=== PATIENT | female | born 1975 | race American Indian/Alaskan Native ===

== ENCOUNTER 2017-02-20 19:06 | Emergency (ER) | payer MEDICAID ==
[~2017-02-20] VITALS: Ht 154.9 cm; Wt 67.6 kg
[~2017-02-20 19:06] MED LIST: SULF1TAB35 PO
--- OUTSIDE RECORDS SUMMARY | 2017-02-20 19:11 | XMS REPORT | Continuity of Care Document ---
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 09/23/2013 CAROLINA CAMPO DO V72.83 OTHER SPECIFIED PRE-OPERATIVE EXAMINATION 09/23/2013 CAROLINA CAMPO DO 070.54 CHRONIC HEPATITIS C WITHOUT HEPATIC COMA 09/23/2013 CAROLINA CAMPO DO 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 09/23/2013 CAROLINA CAMPO DO V72.83 OTHER SPECIFIED PRE-OPERATIVE EXAMINATION 04/14/2014 CAROLINA CAMPO DO 054.12 HERPETIC ULCERATION OF VULVA 04/14/2014 CAROLINA CAMPO DO 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 Visit Date/Time Discharge Status Pt. Type Provider Facility Loc./Unit Complaint [id number] 04/14/2014 09:47:00 04/14/2014 23: 59:59 CLS Outpatient CAROLINA CAMPO DO [id number] 09/23/2013 14:08:00 09/23/2013 23: 59:59 CLS Outpatient CAROLINA CAMPO DO
--- OUTSIDE RECORDS SUMMARY | 2017-02-20 19:11 | XMS REPORT ---
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
--- NOTE | 2017-02-20 19:30 | ED Upper Extremity ---
General Chief Complaint: General Problems/Pain Stated Complaint: LEFT SHOULDER PAIN Source: patient History of Present Illness Time seen by provider: 19:19 Initial Comments PT ARRIVES VIA POV C/O LEFT SHOULDER PAIN FOR OVER A WEEK--PAIN IS OVER LEFT TRAPEZIUS AREA NO INJURY STATES SHE SWITCHED BEDS A WEEK OR TWO AGO AND THINKS THAT IS WHY HER SHOULDER IS HURTING NO PARESTHESIAS OR MOTOR DEFICITS NO NECK OR BACK PAIN NO CHEST PAIN PAIN WORSE WITH ANY MOVEMENTS OF LEFT SHOULDER STATES 3-4 YEARS AGO SHE FELL AND INJURED THIS SHOULDER, AND STATES "MY WHOLE ARM WAS NUMB FOR A YEAR AND THEN IT GRADUALLY CAME BACK" NO SURGERY, THERAPY, ETC. PT STATES NO RELIEF WITH ICY HOT, XANAX ( NOT HER OWN--RAN OUT OF HER OWN) , OCYCODONE ( NOT HER OWN) , THC PT IS RIGHT HANDED SYMPTOMS NO DIFFERENT TODAY HAS NOT SOUGHT CARE UNTIL TODAY PCP: LIYA BAUER Allergies and Home Medications Allergies Coded Allergies: Codeine (Verified Allergy, Unknown, 03/11/06) Home Medications Cyclobenzaprine HCl 10 Mg Tablet, 10 MG PO Q8H, #15 Prescribed by: EVELIN MENDIETA on 02/20/172004 Methylprednisolone 4 Mg Tab.ds.pk, 4 MG PO UD, #1 Prescribed by: EVELIN MENDIETA on 02/20/172004 Sulfamethoxazole/Trimethoprim 1 Each Tablet, 1 EACH PO BID, #14 Prescribed by: FILIBERTO NAGEL on 12/12/152058 Constitutional: no symptoms reported Respiratory: no symptoms reported Cardiovascular: no symptoms reported Gastrointestinal: no symptoms reported Genitourinary: no symptoms reported : No LMP: Feb 20, 2017 Control/STD Prophylaxis: None Musculoskeletal: see HPI Skin: no symptoms reported Psychiatric/Neurological: No Symptoms Reported Past Aygakbp-Wpeegf-Mpreht Hx Patient Social History Recreational Drug Use: Yes (METH, THC) Smoking Status: Current Everyday Smoker Type Used: Cigarettes Recent Foreign Travel: No Contact w/Someone Who Travel: No Recent Hopitalizations: No Gastrointestinal Gastrointestinal Disorders: Hepatitis Cancer Cancer: Rectal Family Medical History Significant Family History: No Pertinent Family Hx Physical Exam Vital Signs Vital Sign - Last 12Hours 02/20/17 19:11 Temp 97.0 Pulse 91 Resp 20 B/P (MAP) 126/92 Pulse Ox 98 O2 Delivery Room Air Capillary Refill : General Appearance: WD/WN, no apparent distress, other (REEKS OF CIGARETTES, CONSTANT MOVEMENTS OF MOUTH AND BODY, SPEECH VERY RAPID AND MUMBLING--APPEARS TO BE UNDER THE INFLUENCE OF SOME SUBSTANCE/S) HEENT: other (EDENTULOUS--UPPER DENTURES IN PLACE) Neck: non-tender, full range of motion, normal inspection Cardiovascular: normal peripheral pulses, regular rate, rhythm, no murmur Respiratory: chest non-tender, normal breath sounds, no respiratory distress, no accessory muscle use Gastrointestinal: non tender, soft Back: normal inspection, no CVA tenderness, no vertebral tenderness Shoulder: No asymmetry, bone tenderness (POSTERIOR LEFT SHOULDER), No deformity , No ecchymosis, limited ROM (HOLDS LEFT ARM STIFFLY BENT AT ELBOW AND TO HER SIDE), pain, soft tissue tenderness (PAIN/ TENDERNESS DIRECTLY OVER LEFT TRAPEZIUS MUSCLE. MARKEDLY EXAGGERATED PAIN RESPONSE. PALPATION REPRODUCES PAIN ), No swelling Elbow/Forearm: normal inspection, non-tender, no evidence of injury, normal ROM Wrist: Yes normal inspection, Yes non-tender, Yes no evidence of injury Hand: normal inspection, non-tender, no evidence of injury, normal ROM Neurologic/Tendon: normal sensation, normal motor functions, normal tendon functions Neurologic/Psychiatric: machine cloth trimmer II-XII nml as tested, no motor/sensory deficits, alert, oriented x 3 Skin: normal color, warm/dry Splinting and Joint Reduction : Arm Sling: [place] Progress/Results/Core Measures Results/Orders My Orders Orders - EVELIN MENDIETA DO Shoulder, Left, 3 Views (02/20/17 19:23) Sling (02/20/17 19:59) Vital Signs/I&O Vital Sign - Last 12Hours 02/20/17 19:11 Temp 97.0 Pulse 91 Resp 20 B/P (MAP) 126/92 Pulse Ox 98 O2 Delivery Room Air Diagnostic Imaging Comments XRAYS LEFT SHOULDER--NO ACUTE PROCESS, PENDING RADIOLOGIST REVIEW Reviewed: Reviewed by Me Departure Impression Impression: Primary Impression: Strain of left trapezius muscle Disposition: HOME, SELF-CARE Condition: Stable Departure-Patient Inst. Referrals: NO,LOCAL PHYSICIAN (PCP/Family) Primary Care Physician Patient Instructions: Muscle Strain (DC) Add. Discharge Instructions: MOIST HEAT TO AREA AT 20 MINUTE INTERVALS WEAR SLING NEEDED FOR COMFORT FOLLOW UP WITH [facility] IN 2-3 DAYS FOR FURTHER CARE All discharge instructions reviewed with patient and/or family. Voiced understanding. Scripts Cyclobenzaprine HCl (Cyclobenzaprine HCl) 10 Mg Tablet 10 MG PO Q8H, #15 TAB Prov: EVELIN MENDIETA DO 02/20/17 Methylprednisolone (Medrol) 4 Mg Tab.ds.pk 4 MG PO UD, #1 PKG Prov: EVELIN MENDIETA DO 02/20/17 EVELIN MENDIETA DO Feb 20, 2017 19:29
[2017-02-20] MEDS ORDERED: METH4TAB PO (20:05)
[2017-02-20] MEDS ORDERED: CYCL10TA9 PO (20:05)
[2017-02-20 20:11] VITALS: BP 126/92
--- NOTE | 2017-02-20 20:18 | Diagnostic Imaging Report ---
INDICATION: Left shoulder pain 3 views of the left shoulder show no fracture, dislocation or other acute abnormalities. IMPRESSION: Negative left shoulder Dictated by: Dictated on workstation # [id number]
== END 2017-02-20 20:11 | disposition home or self-care (01) ==
LOC: EDUNIT# 19:06 → ER 19:08
DX: S29.012A Strain of muscle and tendon of back wall of thorax, initial encounter (principal); F17.210 Nicotine dependence, cigarettes, uncomplicated; Z87.19 Personal history of other diseases of the digestive system; X50.0XXA Overexertion from strenuous movement or load, initial encounter
CPT/HCPCS: 73030; 99281

== ENCOUNTER 2018-02-13 09:18 | Emergency (ER) | payer SELFPAY ==
[~2018-02-13] VITALS: Ht 154.9 cm; Wt 59.0 kg
[~2018-02-13 09:18] MED LIST changes: +CYCL10TA9 PO; +METH4TAB PO
--- NOTE | 2018-02-13 12:33 | Diagnostic Imaging Report ---
INDICATION: Dyspnea with cough and congestion for one week. COMPARISON: None. DISCUSSION: Two views of the chest were obtained. The lungs are hyperinflated, consistent with underlying COPD. Underlying emphysematous changes are present, particularly within the left lung apex. There is likely focal consolidation noted within the right infrahilar region, best seen on the lateral view. No pleural fluid or pneumothorax. Normal heart size. No osseous abnormality. IMPRESSION: 1. Suspect left lower lobe pneumonia. Dictated by: Dictated on workstation # [id number]
[2018-02-13] MEDS ORDERED: cefTRIAXone 1 GM/10 ML for IV (ROCEPHIN) IM ONE (13:00)
[2018-02-13] MEDS ORDERED: LIDOCAINE 1% INJ 20 ML 20 ML VIAL INJ ONE (13:00)
[2018-02-13] MEDS ORDERED: AZITHROMYCIN 250 MG TAB (ZITHROMAX) PO ONE (13:00)
[2018-02-13] MEDS ORDERED: KETOROLAC 30 MG/ML VIAL IM ONE (13:00)
[2018-02-13] MEDS ORDERED: AZIT250T12 PO (13:10)
--- NOTE | 2018-02-13 13:11 | ED General ---
General Chief Complaint: Cough/Cold/Flu Symptoms Stated Complaint: CHEST CONGESTION COLD SYMPTOMS Nursing Triage Note: PT PRESENTS TO ED WITH COMPLAINTS OF COUGH/CONGESTION/SOA X 1 WEEK. REPORTS THEY JUST MOVED INTO THEIR HOUSE AND CANNOT AFFORD TO TURN ON THE HEAT CURRENTLY. REPORTS THEY HAVE TWO SPACE HEATERS THEY ARE USING. PT REPORTS GENERALIZED WEAKNESS AND BODY ACHES. PT REPORTS SHE LAST USED METH LAST NIGHT. Nursing Sepsis Screen: No Definite Risk Source of Information: Patient Exam Limitations: No Limitations History of Present Illness Date Seen by Provider: Feb 13, 2018 Time Seen by Provider: 11:35 Initial Comments This 42-year-old woman presents to the emergency room with complaints of left lateral chest wall pain. She has had a productive cough for about one week. The pain is worse with breathing and coughing. She admits to smoking methamphetamines a couple of days ago. She also smokes tobacco. She is afebrile. Allergies and Home Medications Allergies Coded Allergies: codeine (Verified Allergy, Unknown, 03/11/06) Home Medications Azithromycin 250 Mg Tablet, 250 MG PO DAILY Prescribed by: SYLVESTER CHANDRA on 02/13/18 1310 Cyclobenzaprine HCl 10 Mg Tablet, 10 MG PO Q8H Prescribed by: EVELIN MENDIETA on 02/20/172004 Methylprednisolone 4 Mg Tab.ds.pk, 4 MG PO UD Prescribed by: EVELIN MENDIETA on 02/20/172004 Sulfamethoxazole/Trimethoprim 1 Each Tablet, 1 EACH PO BID Prescribed by: FILIBERTO NAGEL on 12/12/152058 Patient Home Medication List Home Medication List Reviewed: Yes Review of Systems Review of Systems Constitutional: no symptoms reported EENTM: no symptoms reported Respiratory: see HPI Cardiovascular: no symptoms reported Gastrointestinal: no symptoms reported Genitourinary: no symptoms reported Musculoskeletal: no symptoms reported Skin: no symptoms reported Psychiatric/Neurological: No Symptoms Reported Hematologic/Lymphatic: No Symptoms Reported Immunological/Allergic: no symptoms reported Past Zjnfjdw-Pmcxus-Mawomp Hx Patient Social History Alcohol Use: Denies Use Recreational Drug Use: Yes Drug of Choice: MARIJUANA, METH Smoking Status: Current Everyday Smoker Type Used: Cigarettes Recent Foreign Travel: No Contact w/Someone Who Travel: No Recent Infectious Disease Expo: No Recent Hopitalizations: No Physical Abuse: No Sexual Abuse: No Mistreated: No Fear: No Seasonal Allergies Seasonal Allergies: No Past Medical History Surgeries: Yes (SX RELTATED TO VULVA/ANAL CA) Gallbladder Respiratory: No Cardiac: No Neurological: No Genitourinary: No Gastrointestinal: Yes (HEPATITIS C) Hepatitis Musculoskeletal: No Endocrine: No HEENT: No Cancer: Yes (VULVAR) Rectal Psychosocial: Yes Anxiety Integumentary: No Blood Disorders: No Family Medical History No Pertinent Family Hx Physical Exam Vital Signs Vital Signs - First Documented 02/13/18 10:29 Temp 98.7 Pulse 98 Resp 20 B/P (MAP) 94/67 (76) Pulse Ox 97 O2 Delivery Room Air Capillary Refill : Less Than 3 Seconds Height, Weight, BMI Height: 5'1.00" Weight: 130lbs. 0oz. 58.190676xo; BMI Method:Stated General Appearance: WD/WN, Mild Distress HEENT: PERRL/EOMI, Normal ENT Inspection, Pharynx Normal Respiratory: Lungs Clear, Normal Breath Sounds, No Accessory Muscle Use, No Respiratory Distress, Other (splinting respirations, cough noted) Cardiovascular: Regular Rate, Rhythm, No Edema, No Murmur Extremity: Normal Inspection, No Calf Tenderness, No Pedal Edema Neurologic/Psychiatric: Alert, Oriented x3, No Motor/Sensory Deficits, Normal Mood/Affect, consultant dietitian II-XII Norm as Tested Skin: Normal Color, Warm/Dry Progress/Results/Core Measures Suspected Sepsis Recent Fever Within 48 Hours: No Infection Criteria Present: Suspected New Infection New/Unexplained Altered Menta: No Sepsis Screen: No Definite Risk SIRS Temperature:98.7 Pulse: 98 Respiratory Rate: 20 Blood Pressure 94 /67 Mean: 76 Results/Orders Lab Results Laboratory Tests Test 02/13/18 11:32 Range/Units Urine Test NEGATIVE NEGATIVE Micro Results Microbiology 02/13/18 Influenza Types A,B Antigen (MELANIE) - Final, Complete My Orders Orders - SYLVESTER SOLARES MD Hcg,Qualitative Urine (02/13/18 11:46) Influenza A And B Antigens (02/13/18 11:46) Chest Pa/Lat (2 View) (02/13/18 11:57) Ceftriaxone For Iv Use (Rocephin For I (02/13/18 13:00) Lidocaine 1% Inj 20 Ml (Xylocaine 1% Inj (02/13/18 13:00) Azithromycin Tablet (Zithromax Tablet) (02/13/18 13:00) Ketorolac Injection (Toradol Injection) (02/13/18 13:00) Ceftriaxone For Iv Use (Rocephin For I (02/13/18 13:16) Vital Signs/I&O Capillary Refill : Less Than 3 Seconds Blood Pressure Mean: 76 Progress Note : Progress Note Influenza screen was negative. Chest x-ray revealed a left lower lobe pneumonia consistent with the area of patient's chest pain. Patient desired aggressive treatment. A Rocephin injection was administered along with her first dose of azithromycin. Toradol was given for pain. Patient also was interested in assistance with methamphetamine abuse treatment. She was given some contact information to assist her. Diagnostic Imaging Diagonstic Imaging: Xray Plain Films/CT/US/NM/MRI: chest Comments Chest x-ray viewed by me and report reviewed. See report below: NAME: MELISSA [facility] REC#: [id number] PT STATUS: REG ER : 1975 PHYSICIAN: SYLVESTER SOLARES MD ADMIT DATE: 02/13/18/ER Draft Date of Exam:02/13/18 CHEST PA/LAT (2 VIEW) INDICATION: Dyspnea with cough and congestion for one week. COMPARISON: None. DISCUSSION: Two views of the chest were obtained. The lungs are hyperinflated, consistent with underlying COPD. Underlying emphysematous changes are present, particularly within the left lung apex. There is likely focal consolidation noted within the right infrahilar region, best seen on the lateral view. No pleural fluid or pneumothorax. Normal heart size. No osseous abnormality. IMPRESSION: 1. Suspect left lower lobe pneumonia. Dictated on workstation # [id number] Dict: 02/13/18 1222 Trans: 02/13/18 1233 AS6 [id number] Interpreted by: AFSANEH JACKSON MD Departure Impression Primary Impression: Left lower lobe pneumonia Qualified Codes: J18.1 - Lobar pneumonia, unspecified organism Additional Impressions: Pleuritic chest pain Methamphetamine use Disposition: HOME, SELF-CARE Condition: Improved Departure-Patient Inst. Decision time for Depature: 13:00 Referrals: NO,LOCAL PHYSICIAN (PCP/Family) Primary Care Physician Patient Instructions: Pneumonia, Adult (DC) Add. Discharge Instructions: Drink plenty of clear liquids. Complete your antibiotic as prescribed. You may take ibuprofen up to 600 mg every 6 hours as needed for pain. Add Tylenol (acetaminophen) up to 650 mg every 6 hours as needed for additional pain relief. Avoid smoking of any kind. Return to care if symptoms are worsening. For assistance with methamphetamine addiction, you may contact the [facility] They have an outpatient treatment program. Their phone number is [phone]. You may also call [facility] at [phone] during business hours and ask for a social media sr strategy manager. A social media sr strategy manager should be able to help direct you to other resources. All discharge instructions reviewed with patient and/or family. Voiced understanding. Scripts Azithromycin (Azithromycin) 250 Mg Tablet 250 MG PO DAILY, #4 TAB Prov: SYLVESTER SOLARES MD 02/13/18 SYLVESTER SOLARES MD Feb 13, 2018 13:11
[2018-02-13] MEDS ORDERED: cefTRIAXone 1 GM/10 ML for IV (ROCEPHIN) ONE (13:16)
[2018-02-13 13:30] VITALS: BP 99/52
== END 2018-02-13 13:30 | disposition home or self-care (01) ==
LOC: EDUNIT# 09:18 → ER 09:19
DX: J18.1 Lobar pneumonia, unspecified organism (principal); R07.81 Pleurodynia; F15.10 Other stimulant abuse, uncomplicated; B19.20 Unspecified viral hepatitis C without hepatic coma; F41.9 Anxiety disorder, unspecified; F12.10 Cannabis abuse, uncomplicated; F17.210 Nicotine dependence, cigarettes, uncomplicated; Z85.048 Personal history of other malignant neoplasm of rectum, rectosigmoid junction, and anus; Z85.44 Personal history of malignant neoplasm of other female genital organs; Z88.5 Allergy status to narcotic agent; Z79.52 Long term (current) use of systemic steroids
CPT/HCPCS: 71046; 84703; 87804

== ENCOUNTER 2021-10-04 12:36 | Emergency (ER) | payer SELFPAY ==
[~2021-10-04] VITALS: Ht 157.4 cm; Wt 60.0 kg
[~2021-10-04 12:36] MED LIST changes: +AZIT250T12 PO; +CYCL10TA25 PO; -CYCL10TA9 PO; -SULF1TAB35 PO; +SULF1TAB38 PO
--- NOTE | 2021-10-04 13:44 | ED Upper Extremity ---
General Chief Complaint: Upper Extremity Stated Complaint: L WRIST PAIN Nursing Triage Note: patient states she tripped over a suitcase in her hallway at [facility] around noon today, landing on her left wrist when she tried to catch herself. History of Present Illness Date Seen by Provider: Oct 04, 2021 Time Seen by Provider: 12:45 Initial Comments 46-year-old female presents for left wrist pain. She reports tripping in her hallway at home, she fell landing on her left wrist. She had immediate onset of pain and mild deformity noted. She denies any previous history of injuries to her left upper extremity. She has had no pain medication prior to arrival. Onset: just prior to arrival Pain/Injury Location: left forearm Method of Injury: fell Modifying Factors: Improves With Immobilization Allergies and Home Medications Allergies Coded Allergies: codeine (Verified Allergy, Unknown, 03/11/06) Patient Home Medication List Home Medication List Reviewed: Yes Azithromycin (Azithromycin) 250 Mg Tablet, 250 MG PO DAILY Prescribed by: SYLVESTER CHANDRA on 02/13/18 1310 Cyclobenzaprine HCl (Cyclobenzaprine HCl) 10 Mg Tablet, 10 MG PO Q8H Prescribed by: EVELIN MENDIETA on 02/20/172004 Hydrocodone/Acetaminophen (Hydrocodone-Acetamin 5-325 mg) 5 Mg-325 Mg Tablet, 1 TAB PO Q6H PRN for PAIN-MODERATE (5-7) Prescribed by: KEERTHI FUENTES on 10/04/21 1438 Methylprednisolone (Medrol) 4 Mg Tab.ds.pk, 4 MG PO UD Prescribed by: EVELIN MENDIETA on 02/20/172004 Sulfamethoxazole/Trimethoprim (Bactrim Ds Tablet) 1 Each Tablet, 1 EACH PO BID Prescribed by: FILIBERTO NAGEL on 12/12/152058 Review of Systems Constitutional: no symptoms reported, see HPI Musculoskeletal: joint pain (left), joint swelling All Other Systems Reviewed Negative Unless Noted: Yes Past Jscttbu-Mbubva-Owotvm Hx Patient Social History Tobacco Use?: Yes Tobacco type used: Cigarettes Smoking Status: Current Everyday Smoker Substance use?: Yes Substance type: Methamphetamine, Marijuana Substance frequency: Couple times a week Alcohol Use?: Yes Alcohol Frequency: Once in a while Pt feels they are or have been: No Immunizations Up To Date Influenza Vaccine Up-to-Date: No; Not Current First/Initial COVID19 Vaccinat: declined Seasonal Allergies Seasonal Allergies: No Past Medical History Surgeries: Yes (SX RELTATED TO VULVA/ANAL CA) Gallbladder Respiratory: No Cardiac: No Neurological: No Genitourinary: No Gastrointestinal: Yes (HEPATITIS C) Hepatitis Musculoskeletal: No Endocrine: No HEENT: No Cancer: Yes (VULVAR) Rectal Psychosocial: Yes Anxiety Integumentary: No Blood Disorders: No Family Medical History Reviewed Nursing Family Hx No Pertinent Family Hx Physical Exam Vital Signs Vital Signs - First Documented 10/04/21 12:40 Temp 36.1 Pulse 66 Resp 18 B/P (MAP) 107/74 (85) Pulse Ox 98 O2 Delivery Room Air Capillary Refill : Less Than 3 Seconds Height, Weight, BMI Height: 5'1.00" Weight: 130lbs. 0oz. 58.641142be; 24.00 BMI Method:Stated General Appearance: WD/WN, no apparent distress Cardiovascular: normal peripheral pulses, regular rate, rhythm Respiratory: chest non-tender, lungs clear, normal breath sounds Wrist: No abrasions; Yes asymmetry, Yes bone tenderness, Yes deformity, Yes ventura ited ROM, Yes pain, Yes soft tissue tenderness, Yes swelling Neurologic/Psychiatric: no motor/sensory deficits, alert, normal mood/affect, oriented x 3 Skin: normal color, warm/dry Procedures/Interventions Splinting and Joint Reduction : Pre-Proc Neuro Vasc Exam: normal Post-Proc Neuro Vasc Exam: normal Pre-Procedure NV Exam: Yes Arm Sling: Medium Hand-Made Type: orthoglass (sugartong) Splint Application: Short Arm Progress/Results/Core Measures Results/Orders My Orders Orders - KEERTHI FUENTES Wrist, Left, 3 Views Or More (10/04/21 13:01) Tramadol Tablet (Ultram Tablet) (10/04/21 13:04) Fentanyl Inj (Sublimaze Injection) (10/04/21 13:50) Vital Signs/I&O 10/04/21 10/04/21 12:40 14:50 Temp 36.1 Pulse 66 68 Resp 18 18 B/P (MAP) 107/74 (85) 110/76 Pulse Ox 98 97 O2 Delivery Room Air Room Air Blood Pressure Mean: 85 Progress Progress Note : Time: 12:45 Progress Note Patient seen and evaluated, will give tramadol for pain. Ice pack to left wrist. Will pain x-ray and reevaluate. 1315 mildly displaced comminuted fracture of the distal radius on the left. Discussed with patient will give additional pain medication and consult Dr. Hillman. 1330 Dr. Hillman recommended referral to Dr. Lopez or referral to hand surgeon. Continuing to have significant pain, will give fentanyl 50 mcg IM for pain. 1405 Dr. Lopez agreeable to see patient. Recommended sugartong splint, applied by RN. Discharge instructions and return precautions reviewed with the patient. Patient reports improvement in pain. Diagnostic Imaging Diagonstic Imaging: Xray Plain Films/CT/US/NM/MRI: forearm Comments NAME: MELISSA [facility] REC#: [id number] PT STATUS: REG ER : 1975 PHYSICIAN: KEERTHI FUENTES ADMIT DATE: 10/04/21/ER Draft Date of Exam:10/04/21 WRIST, LEFT, 3 VIEWS OR MORE INDICATION: Fall with left wrist injury. TIME OF EXAM: 01:09 p.m. FINDINGS: Three views of the left wrist demonstrate a comminuted impacted intra-articular fracture of the distal radius. There is slight dorsal displacement and angulation of the distal radius fracture fragment. There is also fracture of the ulnar styloid, nondisplaced. Carpal bones and metacarpals are intact. IMPRESSION: Impacted intra-articular distal radius fracture as well as ulnar styloid fracture. Dictated on workstation # [id number] Dict: 10/04/21 1340 Trans: 10/04/21 1343 AS6 [id number] Interpreted by: SHANIA CLARK MD Electronically signed by: Departure Impression Primary Impression: Left wrist fracture Qualified Codes: S62.102A - Fracture of unspecified carpal bone, left wrist, initial encounter for closed fracture Disposition: 01 HOME, SELF-CARE Condition: Improved Departure-Patient Inst. Decision time for Depature: 14:05 Referrals: [facility]),LOCAL PHYSICIAN (PCP) Primary Care Physician TRE LOPEZ MD Patient Instructions: Wrist Fracture (DC) Add. Discharge Instructions: Call Dr. Lopez's office for follow up. Leave splint on at all times. Ice to left wrist every 2 hours for 20 min. Take pain medication as prescribed. Return to the Emergency Dept for new, urgent health care needs. All discharge instructions reviewed with patient and/or family. Voiced understanding. Scripts Hydrocodone/Acetaminophen (Hydrocodone-Acetamin 5-325 mg) 5 Mg-325 Mg Tablet 1 TAB PO Q6H PRN for PAIN-MODERATE (5-7), #20 TAB 0 Refills Prov: KEERTHI FUENTES 10/04/21 Copy Copies To 1: TRE LOPEZ MD, AMY ARNP Oct 04, 2021 13:44
[2021-10-04] MEDS ORDERED: fentaNYL INJ 100 MCG/2 ML AMP IM STA (13:50)
[2021-10-04] MEDS ORDERED: ACHD5005 PO (14:37)
[2021-10-04 14:50] VITALS: BP 110/76
== END 2021-10-04 14:50 | disposition home or self-care (01) ==
LOC: EDUNIT# 12:36 → ER 12:38
DX: S62.102A Fracture of unspecified carpal bone, left wrist, initial encounter for closed fracture (principal); F17.210 Nicotine dependence, cigarettes, uncomplicated; Z28.310 Unvaccinated for COVID-19; W01.0XXA Fall on same level from slipping, tripping and stumbling without subsequent striking against object, initial encounter; Y92.009 Unspecified place in unspecified non-institutional (private) residence as the place of occurrence of the external cause
CPT/HCPCS: 29125; 73110

== ENCOUNTER → 2021-10-05 | Outpatient (CLI) | payer OTHER ==
[~2021-10-05] MED LIST changes: +ACHD5005 PO
== END ==
LOC: ORTHO 15:08
PROVIDERS: ATTEND Orthopaedic Surgery
DX: S52.532A Colles' fracture of left radius, initial encounter for closed fracture (principal); X58.XXXA Exposure to other specified factors, initial encounter
CPT/HCPCS: 99203

== ENCOUNTER 2021-10-06 05:36 | Outpatient (CLI) | payer SELFPAY ==
[~2021-10-06] VITALS: Ht 154.9 cm; Wt 81.9 kg
== END 2021-10-06 11:40 | disposition home or self-care (01) ==
LOC: PREOP 05:36
PROVIDERS: ATTEND Orthopaedic Surgery
DX: Z01.818 Encounter for other preprocedural examination (principal)

== ENCOUNTER 2021-10-09 07:04 | Day surgery (SDC) | payer OTHER ==
[~2021-10-09] VITALS: Ht 154.9 cm; Wt 81.9 kg
[2021-10-09 07:42] LABS: AMPHETAMINE SCREEN, URINE POSITIVE (NEGATIVE); BARBITURATE SCREEN URINE NEGATIVE (NEGATIVE); BENZODIAZEPINES SCREEN URINE NEGATIVE (NEGATIVE); CANNABINOID SCREEN, URINE POSITIVE (NEGATIVE); COCAINE SCREEN URINE NEGATIVE (NEGATIVE); METHADONE STAT NEGATIVE (NEGATIVE); OPIATE SCREEN URINE POSITIVE (NEGATIVE); OXYCODONE STAT NEGATIVE (NEGATIVE); PROPOXYPHENE STAT NEGATIVE (NEGATIVE); TRICYCLIC ANTIDEPRESSANTS SCRE NEGATIVE (NEGATIVE)
[2021-10-09] MEDS ORDERED: LIDOCAINE PF 2% 5 ML (XYLOCAINE) VIAL ONE (07:45)
[2021-10-09] MEDS ORDERED: MIDAZOLAM 2 MG/2 ML (VERSED) VIAL ONE (07:45)
[2021-10-09] MEDS ORDERED: ONDANSETRON 4 MG/2 ML (SDV) Z0FRAN ONE (07:45)
[2021-10-09] MEDS ORDERED: proPOfol 200 MG/20 ML (DIPRIVAN) VIAL IV ONE (07:45)
[2021-10-09] MEDS ORDERED: fentaNYL INJ 100 MCG/2 ML AMP ONE (07:45)
[2021-10-09] MEDS ORDERED: fentaNYL INJ 100 MCG/2 ML AMP IV ONE (07:45)
== END 2021-10-09 08:15 | disposition home or self-care (01) ==
LOC: SDC 07:04
PROVIDERS: ATTEND Orthopaedic Surgery
DX: S52.502A Unspecified fracture of the lower end of left radius, initial encounter for closed fracture (principal); Z53.8 Procedure and treatment not carried out for other reasons
CPT/HCPCS: 80306; 84703; 87081

== ENCOUNTER → 2021-10-11 | Day surgery (SDC) | payer OTHER ==
[~2021-10-11] MED LIST changes: +LACTATED RINGERS 1,000 ML IV PRN; +ceFAZolin 2 GM IV Premixed 50 ML IV ONE
[2021-10-11 06:22] LABS: AMPHETAMINE SCREEN, URINE POSITIVE (NEGATIVE); BARBITURATE SCREEN URINE NEGATIVE (NEGATIVE); BENZODIAZEPINES SCREEN URINE NEGATIVE (NEGATIVE); CANNABINOID SCREEN, URINE POSITIVE (NEGATIVE); COCAINE SCREEN URINE NEGATIVE (NEGATIVE); METHADONE STAT NEGATIVE (NEGATIVE); OPIATE SCREEN URINE POSITIVE (NEGATIVE); OXYCODONE STAT NEGATIVE (NEGATIVE); PROPOXYPHENE STAT NEGATIVE (NEGATIVE); TRICYCLIC ANTIDEPRESSANTS SCRE NEGATIVE (NEGATIVE)
== END ==
LOC: SDC 05:48
PROVIDERS: ATTEND Orthopaedic Surgery
DX: S52.502A Unspecified fracture of the lower end of left radius, initial encounter for closed fracture (principal); Z53.8 Procedure and treatment not carried out for other reasons
CPT/HCPCS: 80306; 84703

== ENCOUNTER → 2021-10-16 | Day surgery (SDC) | payer OTHER ==
[2021-10-16 06:20] VITALS: BP 138/83
[2021-10-16 06:33] LABS: AMPHETAMINE SCREEN, URINE NEGATIVE (NEGATIVE); BARBITURATE SCREEN URINE NEGATIVE (NEGATIVE); BENZODIAZEPINES SCREEN URINE NEGATIVE (NEGATIVE); CANNABINOID SCREEN, URINE POSITIVE (NEGATIVE); COCAINE SCREEN URINE NEGATIVE (NEGATIVE); METHADONE STAT NEGATIVE (NEGATIVE); OPIATE SCREEN URINE POSITIVE (NEGATIVE); OXYCODONE STAT NEGATIVE (NEGATIVE); PROPOXYPHENE STAT NEGATIVE (NEGATIVE); TRICYCLIC ANTIDEPRESSANTS SCRE NEGATIVE (NEGATIVE)
== END | disposition home or self-care (01) ==
LOC: SDC 05:58
PROVIDERS: ATTEND Orthopaedic Surgery
DX: S52.502A Unspecified fracture of the lower end of left radius, initial encounter for closed fracture (principal); F19.10 Other psychoactive substance abuse, uncomplicated; X58.XXXA Exposure to other specified factors, initial encounter; Z53.09 Procedure and treatment not carried out because of other contraindication
CPT/HCPCS: 36415; 80306; 84703; 87081

== ENCOUNTER → 2021-11-07 | Outpatient (CLI) | payer OTHER ==
[~2021-11-07] MED LIST changes: -LACTATED RINGERS 1,000 ML IV PRN; -ceFAZolin 2 GM IV Premixed 50 ML IV ONE
--- NOTE | 2021-11-07 16:11 | Diagnostic Imaging Report ---
EXAMINATION: Left wrist 3 or more views HISTORY: Wrist fracture COMPARISON: 10/04/2021 FINDINGS: There is an unchanged posterior angulated fracture of the left distal radius. There is an unchanged ulnar styloid process fracture. No new fracture is seen. IMPRESSION: 1. Unchanged dorsally angulated left distal radial fracture. 2. Unchanged ulnar styloid process fracture. Dictated by: Dictated on workstation # [id number]
[2021-11-07 21:32] LABS: AMPHETAMINES URINE QUAL DS Positive (Negative); BARBITURATES URINE QUAL DS Negative (Negative); BENZODIAZEPINE URINE QUAL DS Negative (Negative)
== END ==
LOC: ORTHO 10:36
PROVIDERS: ATTEND Orthopaedic Surgery
DX: S52.531P Colles' fracture of right radius, subsequent encounter for closed fracture with malunion (principal); F19.10 Other psychoactive substance abuse, uncomplicated
CPT/HCPCS: 73110; 80307; G0463; 36415; 99213